=== PATIENT | male | born 1945 | race Caucasian/White ===

== ENCOUNTER 2018-06-16 18:31 | Inpatient (IN) ==
[2018-06-16] MEDS ORDERED: ASPIRIN 325 MG TABLET PO STA (19:05)
[2018-06-16 19:17] LABS: Basophils # 0.1 10*3/uL (0.0-0.2); Basophils % 0.8 % (0.0-0.8); Eosinophils # 0.3 10*3/uL (0.0-0.87); Eosinophils % 2.5 % (0.00-10.9); Hematocrit 44.3 VOL% (42.0-52.0); Hemoglobin 14.6 GM/DL (14.0-18.0); Immature Granulocytes % 0.3 %; Immature Granulocytes Absolute 0.03 #; Lymphocytes # 3.1 10*3/uL (1.4-4.0); Lymphocytes % 31.9 % (21.2-54.2); Mean Corpuscular Hemoglobin 31 PG (27-34); Mean Corpuscular Volume 92.5 FL (87-102); Mean Platelet Volume 11.5 FL (9.6-12.0); Monocytes # 1.1 10*3/uL (0.11-0.8); Monocytes % 10.7 % (1.7-12.7); Neutrophils # 5.3 10*3/uL (1.4-7.4); Neutrophils % 53.8 % (38.7-73.9); Platelet Count 172 T/CUMM (130-400); Red Blood Count 4.79 MC/CUMM (3.8-5.5); Red Cell Distribution Width 13.2 % (9.3-17.3); White Blood Count 9.8 T/CUMM (4-12)
[2018-06-16] MEDS: NITROGLYCERIN SL 0.4 MG TABLET SL PRN ×2 (19:22→19:35)
[2018-06-16 19:31] LABS: Alanine Aminotransferase 41 U/L (16-61); Albumin 3.5 G/DL (3.4-5.0); Alkaline Phosphatase 92 U/L (45-117); Aspartate Amino Transferase 38 U/L (0-37); Bilirubin,Total < 0.39 MG/DL (0.2-1.0); Blood Urea Nitrogen 11 MG/DL (7-18); Calcium 8.2 MG/DL (8.5-10.1); Glucose 138 MG/DL (74-106); Osmolality,Calculated 279.4 MOS/KG (273-304); Potassium 3.7 MMOL/L (3.5-5.1); Sodium 140 MMOL/L (136-145); Total Protein 6.4 G/DL (6.4-8.3)
[2018-06-16] MEDS ORDERED: ONDANSETRON 4 MG/2 ML VIAL IV ONE (19:37)
[2018-06-16] MEDS ORDERED: MORPHINE 4 MG/1 ML VIAL IV STA (19:37)
[2018-06-16] MEDS ORDERED: MORPHINE 4 MG/1 ML VIAL ONE (19:39)
[2018-06-16] MEDS ORDERED: ONDANSETRON 4 MG/2 ML VIAL ONE (19:39)
[2018-06-16] MEDS ORDERED: ENOXAPARIN 30 MG/0.3 ML SYRINGE SUBCUT STA (19:39)
[2018-06-16] MEDS ORDERED: MORPHINE 4 MG/1 ML VIAL IV PRN (20:21)
[2018-06-16] MEDS ORDERED: ONDANSETRON 4 MG/2 ML VIAL IV PRN (20:21)
[2018-06-16] MEDS ORDERED: ENOXAPARIN 100 MG/ML SYRINGE SUBCUT ONE (22:22)
[2018-06-17 05:24] LABS: Risk Ratio 3.09; VLDL CHOLESTEROL 15.8 MG/DL
[2018-06-17] MEDS: ENOXAPARIN 120 MG/0.8 ML SYRINGE SUBCUT SCH ×2 (08:31→21:42)
[2018-06-17] MEDS: ASPIRIN 325 MG TABLET PO SCH (08:31)
[2018-06-17] MEDS ORDERED: diphenhydrAMINE CAP 25 MG CAPSULE PO ONE (10:27)
[2018-06-17] MEDS ORDERED: POTASSIUM CHLORIDE RIDER 10 MEQ in PREMIX 1 EACH IV PRN (10:27)
[2018-06-17] MEDS ORDERED: MAGNESIUM SULF RIDER 2 GM in PREMIX 1 EACH IV PRN (10:27)
[2018-06-17] MEDS ORDERED: DIAZEPAM 5 MG TABLET PO ONE (10:27)
[2018-06-17] MEDS: SODIUM CHLORIDE 0.9% 1,000 ML IV SCH (12:33)
[2018-06-17] MEDS ORDERED: LIDOCAINE 1% 20 ML VIAL ONE (15:39)
[2018-06-17] MEDS ORDERED: MIDAZOLAM 2 MG/2 ML VIAL ONE (15:39)
[2018-06-17] MEDS ORDERED: NITROGLYCERIN DRIP 50 MG/250 ML BOTTLE IV ONE (15:39)
[2018-06-17] MEDS ORDERED: VERAPAMIL 5 MG/2 ML VIAL ONE (15:39)
[2018-06-17] MEDS ORDERED: fentaNYL 100 MCG/2 ML VIAL ONE (15:39)
[2018-06-18] MEDS: SODIUM CHLORIDE 0.9% 1,000 ML IV SCH ×3 (00:10→11:51)
[2018-06-18 04:06] LABS: Basophils # 0.1 10*3/uL (0.0-0.2); Basophils % 0.6 % (0.0-0.8); Eosinophils # 0.2 10*3/uL (0.0-0.87); Eosinophils % 2.1 % (0.00-10.9); Hematocrit 40.5 VOL% (42.0-52.0); Hemoglobin 13.2 GM/DL (14.0-18.0); Immature Granulocytes % 0.3 %; Immature Granulocytes Absolute 0.03 #; Lymphocytes # 3.1 10*3/uL (1.4-4.0); Lymphocytes % 31.9 % (21.2-54.2); Mean Corpuscular HGB Conc 32.6 GM/DL (32-36); Mean Corpuscular Hemoglobin 30 PG (27-34); Mean Corpuscular Volume 91.6 FL (87-102); Mean Platelet Volume 12.4 FL (9.6-12.0); Monocytes # 1.3 10*3/uL (0.11-0.8); Monocytes % 13.9 % (1.7-12.7); Neutrophils # 4.9 10*3/uL (1.4-7.4); Neutrophils % 51.2 % (38.7-73.9); Platelet Count 165 T/CUMM (130-400); Red Blood Count 4.42 MC/CUMM (3.8-5.5); Red Cell Distribution Width 13.7 % (9.3-17.3); White Blood Count 9.6 T/CUMM (4-12)
[2018-06-18 04:14] LABS: Calcium 8.1 MG/DL (8.5-10.1); Osmolality,Calculated 276.4 MOS/KG (273-304); Potassium 4.3 MMOL/L (3.5-5.1)
[2018-06-18] MEDS: ENOXAPARIN 120 MG/0.8 ML SYRINGE SUBCUT SCH (08:59)
[2018-06-18] MEDS: CHLORHEXIDINE 0.12% ORAL RINSE 60 ML BOTTLE SWISH/SPIT SCH ×2 (08:59→22:00)
[2018-06-18] MEDS: ASPIRIN 325 MG TABLET PO SCH (08:59)
[2018-06-18] MEDS: CHLORHEXIDINE 4% SOLN 118 ML BOTTLE TOP SCH ×3 (09:09→22:00)
[2018-06-18] MEDS: hydroCHLOROthiazide 12.5 MG CAPSULE PO SCH (11:51)
[2018-06-18] MEDS: LISINOPRIL 5 MG TABLET PO SCH (11:52)
[2018-06-18] MEDS: ATORVASTATIN 20 MG TABLET PO SCH (11:52)
[2018-06-19 04:26] LABS: Basophils # 0.1 10*3/uL (0.0-0.2); Basophils % 0.6 % (0.0-0.8); Eosinophils # 0.2 10*3/uL (0.0-0.87); Eosinophils % 1.6 % (0.00-10.9); Hematocrit 39.4 VOL% (42.0-52.0); Hemoglobin 13.1 GM/DL (14.0-18.0); Immature Granulocytes % 0.2 %; Immature Granulocytes Absolute 0.02 #; Lymphocytes # 2.8 10*3/uL (1.4-4.0); Lymphocytes % 27.7 % (21.2-54.2); Mean Corpuscular HGB Conc 33.2 GM/DL (32-36); Mean Corpuscular Hemoglobin 30 PG (27-34); Mean Corpuscular Volume 89.7 FL (87-102); Mean Platelet Volume 12.1 FL (9.6-12.0); Monocytes # 1.7 10*3/uL (0.11-0.8); Monocytes % 16.2 % (1.7-12.7); Neutrophils # 5.5 10*3/uL (1.4-7.4); Neutrophils % 53.7 % (38.7-73.9); Platelet Count 157 T/CUMM (130-400); Red Blood Count 4.39 MC/CUMM (3.8-5.5); Red Cell Distribution Width 13.2 % (9.3-17.3); White Blood Count 10.2 T/CUMM (4-12)
[2018-06-19 05:01] LABS: Eosinophils 2 % (0-10); Hypochromasia 1+; Lymphocytes 26 % (20-55); Platelet Estimate Adequate; Segmented Neutrophils 60 % (50-85); Total Cells Counted 100
[2018-06-19 05:12] LABS: Calcium 8.5 MG/DL (8.5-10.1); Osmolality,Calculated 279.4 MOS/KG (273-304); Potassium 3.5 MMOL/L (3.5-5.1)
[2018-06-19] MEDS ORDERED: VANCOMYCIN 1,000 MG VIAL ONE (05:17)
[2018-06-19] MEDS ORDERED: PAPAVERINE 60 MG/2 ML VIAL ONE (05:17)
[2018-06-19] MEDS ORDERED: TISSUE ADHESIVE 1 EACH APPLICATOR TOP ONE (05:17)
[2018-06-19] MEDS ORDERED: CEFUROXIME INJ 1,500 MG in SYRINGE 1 EACH IV ONE (07:09)
[2018-06-19] MEDS ORDERED: ALBUMIN 5% 12.5 GM/250 ML VIAL IV ONE ×3 (08:57→17:01)
[2018-06-19] MEDS ORDERED: POTASSIUM CHLORIDE RIDER 100 ML IV ONE (09:34)
[2018-06-19] MEDS ORDERED: MIDAZOLAM 2 MG/2 ML VIAL ONE (09:37)
[2018-06-19] MEDS ORDERED: ATROPINE 1 MG/10 ML SYRINGE ONE (09:46)
[2018-06-19] MEDS ORDERED: EPINEPHrine 1 MG/10 ML SYRINGE ONE (09:46)
[2018-06-19] MEDS ORDERED: CALCIUM CHLORIDE 1,000 MG/10 ML SYRINGE IV ONE (09:46)
[2018-06-19] MEDS ORDERED: FAMOTIDINE 20 MG TABLET PO ONE (10:30)
[2018-06-19] MEDS ORDERED: DIAZEPAM 5 MG TABLET PO ONE (10:30)
[2018-06-19] MEDS ORDERED: MIDAZOLAM 2 MG/2 ML VIAL IV ONE (10:33)
[2018-06-19] MEDS ORDERED: ePHEDrine 50 MG/ML AMP ONE (11:21)
[2018-06-19] MEDS ORDERED: MIDAZOLAM 10 MG/2 ML VIAL ONE (11:21)
[2018-06-19] MEDS ORDERED: CALCIUM CHLORIDE 1,000 MG/10 ML VIAL IV ONE (11:21)
[2018-06-19] MEDS ORDERED: VECURONIUM 10 MG VIAL IV ONE (11:22)
[2018-06-19] MEDS ORDERED: ETOMIDATE 40 MG/20 ML VIAL IV ONE (11:22)
[2018-06-19] MEDS ORDERED: SODIUM CHLORIDE 0.9% 250 ML IV ONE (11:22)
[2018-06-19] MEDS ORDERED: LACTATED RINGERS 1,000 ML IV ONE (11:22)
[2018-06-19] MEDS ORDERED: SODIUM CHLORIDE 0.9% 1,000 ML IV ONE (11:22)
[2018-06-19] MEDS ORDERED: PHENYLEPHRINE DRIP 20 MG/250 ML PREMIX IV ONE (11:22)
[2018-06-19] MEDS ORDERED: AMINOCAPROIC ACID 5,000 MG/20 ML VIAL IV ONE (11:22)
[2018-06-19] MEDS ORDERED: NITROGLYCERIN DRIP 50 MG/250 ML BOTTLE IV ONE (11:23)
[2018-06-19 12:23] LABS: ABG Base Excess 1.2 MMOL/L (-2.5-2.5); ABG HCO3 25.5 MMOL/L (20-26); ABG Oxygen Saturation 99.7 % (95-100); ABG PCO2 43.7 MM HG (35-48); ABG TCO2 23.1 MMOL/L (23-27); Glucose Heart Surgery 109 MG/DL (74-106); Hematocrit Heart Surgery 40.1 PERCENT (42-52); Ionized Calcium Arterial 1.11 MMOL/L (1.21-1.46); PCO2 Patient Temp Arterial 43.7 MMHG; Patient Temperature 37 CELCIUS; Sodium Heart/CVR 136 MMOL/L (135-145)
[2018-06-19 13:33] LABS: Hematocrit Heart Surgery 28.8 PERCENT (42-52); Hemoglobin Heart Surgery 9.3 G/DL (14.0-18.0); PCO2 Patient Temp Venous 40.8 MM HG; PH Patient Temp Venous 7.418; PO2 Patient Temp Venous 46.9 MM HG; Potassium Heart/CVR 4.3 MMOL/L (3.5-5.1); VBG Base Excess 1.7 MEQ/L (0-4); VBG HCO3 25.7 MEQ/L (24-28); VBG Oxygen Saturation 81.9 %; VBG PCO2 40.8 MMHG (41-51); VBG PH 7.418; VBG PO2 46.9 MMHG (17-40)
[2018-06-19 13:47] LABS: Apearance,Urine CLEAR (Clear); Bilirubin,Urine Negative (Negative); Blood, Urine Negative (Negative); Glucose,Urine (UA) Negative (Negative); Ketones,Urine Negative (Negative); Mucus,Urine Occasional /LPF (Occasional); Nitrite,Urine Negative (Negative); Protein,Urine Negative; RBC,Urine 1 /HPF (0-4); Urine Color Yellow (Yellow); Urine Specific Gravity 1.015 (1.001-1.035)
[2018-06-19 14:05] LABS: Hematocrit Heart Surgery 29.6 PERCENT (42-52); Hemoglobin Heart Surgery 9.6 G/DL (14.0-18.0); PH Patient Temp Venous 7.482; PO2 Patient Temp Venous 49.8 MM HG; Potassium Heart/CVR 4.3 MMOL/L (3.5-5.1); VBG Base Excess 2.2 MEQ/L (0-4); VBG HCO3 26.2 MEQ/L (24-28); VBG Oxygen Saturation 86.9 %; VBG PH 7.482; VBG PO2 49.8 MMHG (17-40)
[2018-06-19 14:36] LABS: Hematocrit Heart Surgery 31.9 PERCENT (42-52); Hemoglobin Heart Surgery 10.3 G/DL (14.0-18.0); PCO2 Patient Temp Venous 36.5 MM HG; PH Patient Temp Venous 7.461; PO2 Patient Temp Venous 46.6 MM HG; Potassium Heart/CVR 4.3 MMOL/L (3.5-5.1); VBG Base Excess 2.4 MEQ/L (0-4); VBG HCO3 26.3 MEQ/L (24-28); VBG PCO2 36.5 MMHG (41-51); VBG PH 7.461; VBG PO2 46.6 MMHG (17-40)
[2018-06-19] MEDS ORDERED: methylPREDNISolone SOD SUC 1,000 MG/8 ML VIAL ONE (14:56)
[2018-06-19] MEDS ORDERED: HEPARIN 10,000 UNIT/10 ML VIAL ONE (14:56)
[2018-06-19] MEDS ORDERED: PROTAMINE SULFATE 250 MG/25 ML VIAL IV ONE ×2 (14:56→15:28)
[2018-06-19] MEDS ORDERED: SODIUM BICARBONATE 50 MEQ/50 ML SYRINGE IV ONE ×3 (14:56→22:00)
[2018-06-19] MEDS ORDERED: MAGNESIUM SULFATE 10 GM/20 ML VIAL IV ONE (14:56)
[2018-06-19] MEDS ORDERED: MANNITOL 12.5 GM/50 ML VIAL IV ONE (14:56)
[2018-06-19] MEDS ORDERED: DEXTROSE 5% KCL 20 MEQ 20 MEQ/1,000 ML BAG IV ONE (14:56)
[2018-06-19] MEDS ORDERED: ALBUMIN 25% 25 GM/100 ML VIAL IV ONE (14:56)
[2018-06-19] MEDS ORDERED: FUROSEMIDE 20 MG/2 ML VIAL ONE (14:57)
[2018-06-19] MEDS ORDERED: THROMBIN TOPICAL (RECOMBINANT) 5,000 UNIT VIAL TOP ONE (15:02)
[2018-06-19 15:08] LABS: ABG Base Excess 0.3 MMOL/L (-2.5-2.5); ABG HCO3 24.6 MMOL/L (20-26); ABG Oxygen Saturation 98.5 % (95-100); ABG PCO2 38.1 MM HG (35-48); ABG PH 7.427 (7.35-7.45); ABG PO2 176.2 MM HG (80-95); ABG TCO2 25.7 MMOL/L (23-27); Glucose Heart Surgery 171 MG/DL (74-106); Hemoglobin Heart Surgery 11.4 G/DL (14.0-18.0); Ionized Calcium Arterial 1.16 MMOL/L (1.21-1.46); Potassium Heart/CVR 3.6 MMOL/L (3.5-5.1); Sodium Heart/CVR 130 MMOL/L (135-145)
[2018-06-19 15:09] LABS: Patient Temperature 37 CELCIUS
[2018-06-19] MEDS ORDERED: PHENYLEPHRINE DRIP 40 MG/250 ML PREMIX IV ONE (16:15)
[2018-06-19] MEDS ORDERED: ACETAMINOPHEN 650 MG SUPP RECTAL PRN (16:54)
[2018-06-19] MEDS ORDERED: ONDANSETRON 4 MG/2 ML VIAL IV PRN (16:54)
[2018-06-19] MEDS ORDERED: MIDAZOLAM 2 MG/2 ML VIAL IV PRN (16:54)
[2018-06-19] MEDS ORDERED: SODIUM CHLORIDE 0.9% 250 ML IV PRN (16:54)
[2018-06-19] MEDS ORDERED: MAGNESIUM SULF RIDER 4 GM in PREMIX 1 EACH IV PRN (16:54)
[2018-06-19] MEDS ORDERED: CHLORHEXIDINE 4% SOLN 118 ML BOTTLE TOP PRN (16:54)
[2018-06-19] MEDS ORDERED: INSULIN REGULAR 100 UNIT/ML IV PRN (16:54)
[2018-06-19] MEDS ORDERED: CALCIUM CHLORIDE 1,000 MG/10 ML SYRINGE IV PRN (16:54)
[2018-06-19] MEDS ORDERED: SODIUM CHLORIDE 0.9% 1,000 ML IV PRN (16:54)
[2018-06-19] MEDS ORDERED: POTASSIUM CHLORIDE RIDER 10 MEQ in PREMIX 1 EACH IV PRN (16:54)
[2018-06-19] MEDS ORDERED: DEXTROSE 50% 25 GM/50 ML VIAL IV PRN ×2 (16:54)
[2018-06-19] MEDS ORDERED: MAGNESIUM SULF RIDER 2 GM in PREMIX 1 EACH IV PRN (16:54)
[2018-06-19] MEDS ORDERED: SEVOFLURANE 1 UNIT/15 MINUTE INH ONE (16:57)
[2018-06-19] MEDS ORDERED: ALBUTEROL INHALER 8 GM INH ONE (16:57)
[2018-06-19] MEDS: ALBUMIN 5% 12.5 GM in PREMIX 1 EACH IV PRN ×2 (17:00→17:16)
[2018-06-19] MEDS ORDERED: SODIUM CHLORIDE 0.45% 1,000 ML IV SCH ×2 (17:00)
[2018-06-19 17:13] LABS: ABG Base Excess -2.6 MMOL/L (-2.5-2.5); ABG HCO3 22.2 MMOL/L (20-26); ABG Oxygen Saturation 92.8 % (95-100); ABG PCO2 40.3 MM HG (35-48); ABG PH 7.358 (7.35-7.45); ABG PO2 71.5 MM HG (80-95); ABG TCO2 20.3 MMOL/L (23-27); Glucose Heart Surgery 192 MG/DL (74-106); Hematocrit Heart Surgery 35.7 PERCENT (42-52); Hemoglobin Heart Surgery 11.6 G/DL (14.0-18.0); Potassium Heart/CVR 2.8 MMOL/L (3.5-5.1)
[2018-06-19 17:17] LABS: Basophils # 0.1 10*3/uL (0.0-0.2); Basophils % 0.3 % (0.0-0.8); Eosinophils # 0.1 10*3/uL (0.0-0.87); Eosinophils % 0.3 % (0.00-10.9); Hemoglobin 11.9 GM/DL (14.0-18.0); Immature Granulocytes % 0.8 %; Immature Granulocytes Absolute 0.16 #; Lymphocytes # 3.2 10*3/uL (1.4-4.0); Mean Corpuscular HGB Conc 33.1 GM/DL (32-36); Mean Corpuscular Hemoglobin 30 PG (27-34); Mean Corpuscular Volume 92.1 FL (87-102); Mean Platelet Volume 11.7 FL (9.6-12.0); Monocytes # 1.8 10*3/uL (0.11-0.8); Monocytes % 8.6 % (1.7-12.7); Neutrophils # 15.8 10*3/uL (1.4-7.4); Platelet Count 154 T/CUMM (130-400); Red Blood Count 3.91 MC/CUMM (3.8-5.5); Red Cell Distribution Width 13.5 % (9.3-17.3); White Blood Count 21.1 T/CUMM (4-12)
[2018-06-19 17:28] LABS: INR 1.1; Partial Thromboplastin Time 25.6 SECS (0-40)
[2018-06-19] MEDS: POTASSIUM CHLORIDE RIDER 20 MEQ in PREMIX 1 EACH IV PRN ×4 (17:30→20:30)
[2018-06-19 17:35] LABS: Blood Urea Nitrogen 10 MG/DL (7-18); Glucose 192 MG/DL (74-106); Osmolality,Calculated 282.4 MOS/KG (273-304); Potassium 2.9 MMOL/L (3.5-5.1); Sodium 140 MMOL/L (136-145)
[2018-06-19 17:40] LABS: Lactic Acid 4.7 MMOL/L (0.4-2.0)
[2018-06-19] MEDS: INSULIN REGULAR DRIP 100 ML IV SCH (17:47)
[2018-06-19 17:49] LABS: Anisocytosis 1+; Band Neutrophils 2 % (0-10); Lymphocytes 18 % (20-55); Platelet Estimate Adequate; Segmented Neutrophils 74 % (50-85); Smudge Cells Few; Total Cells Counted 100
[2018-06-19 17:50] LABS: Macrocytosis Slight
[2018-06-19 19:28] LABS: ABG Base Excess -6.2 MMOL/L (-2.5-2.5); ABG HCO3 19.3 MMOL/L (20-26); ABG Oxygen Saturation 95.8 % (95-100); ABG PO2 90.3 MM HG (80-95); ABG TCO2 17.9 MMOL/L (23-27); Glucose Heart Surgery 202 MG/DL (74-106); Hematocrit Heart Surgery 32.5 PERCENT (42-52); Hemoglobin Heart Surgery 10.5 G/DL (14.0-18.0); Potassium Heart/CVR 3.2 MMOL/L (3.5-5.1)
[2018-06-19] MEDS: MORPHINE 4 MG/1 ML VIAL IV PRN (19:37)
[2018-06-19] MEDS: PHENYLEPHRINE DRIP 40 MG/250 ML PREMIX IV PRN (20:00)
[2018-06-19] MEDS: CEFUROXIME INJ 1,500 MG in SYRINGE 1 EACH IV SCH (20:46)
[2018-06-19 21:41] LABS: VBG Base Excess -5.5 MEQ/L (0-4); VBG HCO3 20.3 MEQ/L (24-28); VBG Oxygen Saturation 69.5 %; VBG PCO2 40.8 MMHG (41-51); VBG PH 7.314; VBG PO2 45.7 MMHG (17-40)
[2018-06-19] MEDS ORDERED: SODIUM BICARB INJ 50 MEQ in SODIUM CHLORIDE 0.45% 1,000 ML IV SCH (22:00)
[2018-06-19] MEDS: SODIUM BICARB INJ 50 MEQ in SODIUM CHLORIDE 0.45% 1,000 ML IV SCH (22:21)
[2018-06-19 23:12] LABS: ABG Base Excess -4.1 MMOL/L (-2.5-2.5); ABG HCO3 20.1 MMOL/L (20-26); ABG Oxygen Saturation 97.2 % (95-100); ABG PCO2 33.7 MM HG (35-48); ABG PH 7.393 (7.35-7.45); ABG PO2 107.1 MM HG (80-95); ABG TCO2 21.1 MMOL/L (23-27); Glucose Heart Surgery 157 MG/DL (74-106)
[2018-06-19] MEDS: CHLORHEXIDINE 0.12% ORAL RINSE 60 ML BOTTLE SWISH/SPIT SCH (23:13)
[2018-06-19 23:36] LABS: Lactic Acid 6.2 MMOL/L (0.4-2.0)
[2018-06-20] MEDS: MORPHINE 4 MG/1 ML VIAL IV PRN ×2 (00:37→03:39)
[2018-06-20] MEDS: INSULIN REGULAR DRIP 100 ML IV SCH ×2 (03:13→16:47)
[2018-06-20 04:56] LABS: Basophils % 0.1 % (0.0-0.8); Hematocrit 30.4 VOL% (42.0-52.0); Immature Granulocytes % 0.7 %; Immature Granulocytes Absolute 0.13 #; Lymphocytes # 0.9 10*3/uL (1.4-4.0); Lymphocytes % 4.7 % (21.2-54.2); Mean Corpuscular HGB Conc 32.9 GM/DL (32-36); Mean Corpuscular Hemoglobin 30 PG (27-34); Mean Corpuscular Volume 92.1 FL (87-102); Mean Platelet Volume 12.6 FL (9.6-12.0); Monocytes # 1.3 10*3/uL (0.11-0.8); Monocytes % 7.1 % (1.7-12.7); Neutrophils # 16.6 10*3/uL (1.4-7.4); Neutrophils % 87.4 % (38.7-73.9); Platelet Count 159 T/CUMM (130-400); Red Cell Distribution Width 13.5 % (9.3-17.3)
[2018-06-20 05:09] LABS: Calcium 7.7 MG/DL (8.5-10.1); Osmolality,Calculated 283.1 MOS/KG (273-304)
[2018-06-20 05:22] LABS: Band Neutrophils 2 % (0-10); Hypochromasia 1+; Lymphocytes 5 % (20-55); Microcytosis Slight; Platelet Estimate Adequate; Segmented Neutrophils 88 % (50-85); Total Cells Counted 100
[2018-06-20 06:16] LABS: ABG Base Excess 0.8 MMOL/L (-2.5-2.5); ABG HCO3 25.1 MMOL/L (20-26); ABG Oxygen Saturation 97.2 % (95-100); ABG PCO2 38.9 MM HG (35-48); ABG PH 7.418 (7.35-7.45); ABG PO2 92.1 MM HG (80-95); ABG TCO2 22.7 MMOL/L (23-27)
[2018-06-20 06:43] LABS: ABG Base Excess 0.5 MMOL/L (-2.5-2.5); ABG HCO3 24.8 MMOL/L (20-26); ABG Oxygen Saturation 94.5 % (95-100); ABG PCO2 40.8 MM HG (35-48); ABG PH 7.401 (7.35-7.45); ABG PO2 73.2 MM HG (80-95); ABG TCO2 22.8 MMOL/L (23-27)
[2018-06-20] MEDS: MORPHINE 10 MG/1 ML VIAL IV PRN ×4 (08:15→23:29)
[2018-06-20] MEDS: CHLORHEXIDINE 0.12% ORAL RINSE 60 ML BOTTLE SWISH/SPIT SCH ×3 (10:30→20:26)
[2018-06-20] MEDS: PANTOPRAZOLE 40 MG VIAL IV SCH (10:30)
[2018-06-20] MEDS: ASPIRIN 325 MG TABLET PO SCH (10:41)
[2018-06-20] MEDS: SODIUM CHLORIDE 0.9% 1,000 ML IV SCH ×3 (10:41→10:44)
[2018-06-20] MEDS: hydroCHLOROthiazide 12.5 MG CAPSULE PO SCH (10:41)
[2018-06-20] MEDS: LISINOPRIL 5 MG TABLET PO SCH (10:42)
[2018-06-20] MEDS: ATORVASTATIN 20 MG TABLET PO SCH (10:42)
[2018-06-20] MEDS ORDERED: FUROSEMIDE 40 MG/4 ML VIAL ONE (15:10)
[2018-06-20] MEDS ORDERED: ALBUMIN 5% 25 GM in PREMIX 1 EACH IV ONE (15:30)
[2018-06-20] MEDS ORDERED: FUROSEMIDE 40 MG/4 ML VIAL IV ONE (15:33)
[2018-06-20] MEDS ORDERED: ALBUMIN 25% 25 GM in PREMIX 1 EACH IV ONE (15:33)
[2018-06-20] MEDS: ALBUTEROL/IPRATROPIUM 3 ML NEB RESP TX SCH ×3 (15:55→23:10)
[2018-06-20] MEDS: CEFUROXIME INJ 1,500 MG in SYRINGE 1 EACH IV SCH ×2 (16:22→19:50)
[2018-06-20] MEDS: SODIUM BICARB INJ 50 MEQ in SODIUM CHLORIDE 0.45% 1,000 ML IV SCH (16:24)
[2018-06-20] MEDS: ATORVASTATIN 40 MG TABLET PO SCH ×2 (16:46→20:25)
[2018-06-20] MEDS: ASPIRIN EC 325 MG TABLET PO SCH (16:46)
[2018-06-20] MEDS: FUROSEMIDE 40 MG TABLET PO SCH (16:46)
[2018-06-20] MEDS ORDERED: LACTATED RINGERS 500 ML IV ONE ×2 (20:18→21:31)
[2018-06-20] MEDS: PHENYLEPHRINE DRIP 40 MG/250 ML PREMIX IV PRN (22:38)
[2018-06-21] MEDS: ALBUTEROL/IPRATROPIUM 3 ML NEB RESP TX SCH ×6 (03:08→23:22)
[2018-06-21 05:27] LABS: Calcium 7.2 MG/DL (8.5-10.1); Osmolality,Calculated 285.3 MOS/KG (273-304); Potassium 4.9 MMOL/L (3.5-5.1)
[2018-06-21 06:18] LABS: Basophils % 0.1 % (0.0-0.8); Hematocrit 29.5 VOL% (42.0-52.0); Hemoglobin 9.3 GM/DL (14.0-18.0); Immature Granulocytes % 0.8 %; Immature Granulocytes Absolute 0.19 #; Lymphocytes # 1.6 10*3/uL (1.4-4.0); Lymphocytes % 6.6 % (21.2-54.2); Mean Corpuscular HGB Conc 31.5 GM/DL (32-36); Mean Corpuscular Hemoglobin 31 PG (27-34); Mean Corpuscular Volume 96.7 FL (87-102); Mean Platelet Volume 12.4 FL (9.6-12.0); Monocytes % 12.6 % (1.7-12.7); Neutrophils # 19.1 10*3/uL (1.4-7.4); Neutrophils % 79.9 % (38.7-73.9); Platelet Count 160 T/CUMM (130-400); Red Blood Count 3.05 MC/CUMM (3.8-5.5); Red Cell Distribution Width 14.4 % (9.3-17.3)
[2018-06-21 06:47] LABS: Band Neutrophils 1 % (0-10); Hypochromasia 1+; Lymphocytes 5 % (20-55); Microcytosis Slight; Platelet Estimate Normal; Segmented Neutrophils 80 % (50-85); Total Cells Counted 100
[2018-06-21] MEDS: MORPHINE 4 MG/1 ML VIAL IV PRN ×2 (07:31→19:33)
[2018-06-21] MEDS: ASPIRIN EC 325 MG TABLET PO SCH (09:05)
[2018-06-21] MEDS: FUROSEMIDE 40 MG TABLET PO SCH (09:05)
[2018-06-21] MEDS: PANTOPRAZOLE 40 MG VIAL IV SCH (09:06)
[2018-06-21] MEDS: CHLORHEXIDINE 0.12% ORAL RINSE 60 ML BOTTLE SWISH/SPIT SCH ×2 (09:06→21:05)
[2018-06-21 09:07] LABS: ABG Oxygen Saturation 90.1 % (95-100); ABG PCO2 43.7 MM HG (35-48); ABG PH 7.408 (7.35-7.45); ABG PO2 65.6 MM HG (80-95); ABG TCO2 28.3 MMOL/L (23-27); Allen Test Positive
[2018-06-21] MEDS ORDERED: AMIODARONE 150 MG/3 ML VIAL ONE ×2 (09:18→20:04)
[2018-06-21] MEDS ORDERED: AMIODARONE INJ 450 MG in DEXTROSE 5% 241 ML IV SCH (09:30)
[2018-06-21] MEDS ORDERED: AMIODARONE INJ 150 MG in DEXTROSE 5% 100 ML IV ONE ×3 (09:30→21:00)
[2018-06-21] MEDS ORDERED: FUROSEMIDE 40 MG/4 ML VIAL IV ONE (10:33)
[2018-06-21] MEDS: AMIODARONE INJ 450 MG in DEXTROSE 5% 241 ML IV SCH (18:36)
[2018-06-21] MEDS: ATORVASTATIN 40 MG TABLET PO SCH (21:05)
[2018-06-22] MEDS ORDERED: SODIUM CHLORIDE 0.45% 1,000 ML IV SCH (00:30)
[2018-06-22] MEDS ORDERED: AMIODARONE INJ 450 MG in DEXTROSE 5% 241 ML IV SCH (02:13)
[2018-06-22] MEDS: ALBUTEROL/IPRATROPIUM 3 ML NEB RESP TX SCH ×5 (03:04→19:43)
[2018-06-22 04:49] LABS: Calcium 7.5 MG/DL (8.5-10.1); Osmolality,Calculated 286.3 MOS/KG (273-304); Potassium 4.4 MMOL/L (3.5-5.1)
[2018-06-22] MEDS: METOPROLOL TARTRATE 25 MG TABLET PO SCH ×2 (09:03→21:20)
[2018-06-22] MEDS: PANTOPRAZOLE 40 MG VIAL IV SCH (09:03)
[2018-06-22] MEDS: FUROSEMIDE 40 MG TABLET PO SCH (09:03)
[2018-06-22] MEDS: ASPIRIN EC 325 MG TABLET PO SCH (09:03)
[2018-06-22] MEDS: CHLORHEXIDINE 0.12% ORAL RINSE 60 ML BOTTLE SWISH/SPIT SCH ×2 (09:19→21:09)
[2018-06-22] MEDS: AMIODARONE 200 MG TABLET PO SCH ×2 (11:16→21:09)
[2018-06-22] MEDS: AMIODARONE INJ 450 MG in DEXTROSE 5% 241 ML IV SCH ×2 (11:19→21:33)
[2018-06-22] MEDS: ATORVASTATIN 40 MG TABLET PO SCH (21:09)
[2018-06-22] MEDS: MORPHINE 4 MG/1 ML VIAL IV PRN (21:10)
[2018-06-22] MEDS: CARBOXYMETHYLCELLULOSE 1% OPH SOLN BOTH EYES SCH (21:33)
[2018-06-23] MEDS: ALBUTEROL/IPRATROPIUM 3 ML NEB RESP TX SCH ×6 (00:45→20:26)
[2018-06-23 04:41] LABS: Basophils % 0.3 % (0.0-0.8); Eosinophils # 0.1 10*3/uL (0.0-0.87); Hematocrit 29.8 VOL% (42.0-52.0); Hemoglobin 9.7 GM/DL (14.0-18.0); Immature Granulocytes % 0.7 %; Lymphocytes # 2.8 10*3/uL (1.4-4.0); Mean Corpuscular HGB Conc 32.6 GM/DL (32-36); Mean Corpuscular Hemoglobin 30 PG (27-34); Mean Platelet Volume 12.3 FL (9.6-12.0); Monocytes # 1.7 10*3/uL (0.11-0.8); Monocytes % 11.9 % (1.7-12.7); Neutrophils # 9.8 10*3/uL (1.4-7.4); Neutrophils % 67.1 % (38.7-73.9); Platelet Count 163 T/CUMM (130-400); Red Blood Count 3.24 MC/CUMM (3.8-5.5); Red Cell Distribution Width 13.6 % (9.3-17.3); White Blood Count 14.5 T/CUMM (4-12)
[2018-06-23 04:54] LABS: Calcium 7.7 MG/DL (8.5-10.1); Osmolality,Calculated 282.4 MOS/KG (273-304); Potassium 4.1 MMOL/L (3.5-5.1)
[2018-06-23] MEDS: AMIODARONE 200 MG TABLET PO SCH ×2 (08:44→21:28)
[2018-06-23] MEDS: CHOLECALCIFEROL 5,000 UNIT TABLET PO SCH (08:44)
[2018-06-23] MEDS: PANTOPRAZOLE 40 MG VIAL IV SCH (08:44)
[2018-06-23] MEDS: CYANOCOBALAMIN 500 MCG TABLET PO SCH (08:45)
[2018-06-23] MEDS: METOPROLOL TARTRATE 25 MG TABLET PO SCH ×2 (08:45→21:28)
[2018-06-23] MEDS: MULTIVITAMIN (BEROCCA) TABLET PO SCH (08:45)
[2018-06-23] MEDS: FUROSEMIDE 40 MG TABLET PO SCH (08:45)
[2018-06-23] MEDS: ASPIRIN EC 325 MG TABLET PO SCH (08:45)
[2018-06-23] MEDS: ESCITALOPRAM 10 MG TABLET PO SCH (08:45)
[2018-06-23] MEDS: CHLORHEXIDINE 0.12% ORAL RINSE 60 ML BOTTLE SWISH/SPIT SCH ×2 (08:46→21:29)
[2018-06-23] MEDS: CARBOXYMETHYLCELLULOSE 1% OPH SOLN BOTH EYES SCH ×3 (11:49→21:32)
[2018-06-23] MEDS: LEVOFLOXACIN 750 MG TABLET PO SCH (12:54)
[2018-06-23] MEDS: ATORVASTATIN 40 MG TABLET PO SCH (21:28)
[2018-06-24] MEDS: ALBUTEROL/IPRATROPIUM 3 ML NEB RESP TX SCH ×6 (00:08→19:39)
[2018-06-24 05:56] LABS: Basophils % 0.3 % (0.0-0.8); Eosinophils # 0.2 10*3/uL (0.0-0.87); Eosinophils % 1.2 % (0.00-10.9); Hematocrit 29.7 VOL% (42.0-52.0); Hemoglobin 9.6 GM/DL (14.0-18.0); Immature Granulocytes % 0.7 %; Immature Granulocytes Absolute 0.09 #; Lymphocytes # 2.2 10*3/uL (1.4-4.0); Lymphocytes % 15.9 % (21.2-54.2); Mean Corpuscular HGB Conc 32.3 GM/DL (32-36); Mean Corpuscular Hemoglobin 30 PG (27-34); Mean Corpuscular Volume 93.1 FL (87-102); Mean Platelet Volume 12.4 FL (9.6-12.0); Monocytes # 2.1 10*3/uL (0.11-0.8); Monocytes % 15.4 % (1.7-12.7); Neutrophils # 9.1 10*3/uL (1.4-7.4); Neutrophils % 66.5 % (38.7-73.9); Platelet Count 156 T/CUMM (130-400); Red Blood Count 3.19 MC/CUMM (3.8-5.5); Red Cell Distribution Width 13.3 % (9.3-17.3); White Blood Count 13.7 T/CUMM (4-12)
[2018-06-24 06:15] LABS: Calcium 7.6 MG/DL (8.5-10.1); Osmolality,Calculated 285.1 MOS/KG (273-304)
[2018-06-24] MEDS: CHLORHEXIDINE 0.12% ORAL RINSE 60 ML BOTTLE SWISH/SPIT SCH ×2 (08:40→20:52)
[2018-06-24] MEDS: PANTOPRAZOLE 40 MG VIAL IV SCH (08:41)
[2018-06-24] MEDS: AMIODARONE 200 MG TABLET PO SCH ×2 (08:41→20:52)
[2018-06-24] MEDS: CHOLECALCIFEROL 5,000 UNIT TABLET PO SCH (08:42)
[2018-06-24] MEDS: ASPIRIN EC 325 MG TABLET PO SCH (08:42)
[2018-06-24] MEDS: metOLazone 5 MG TABLET PO SCH (08:42)
[2018-06-24] MEDS: MULTIVITAMIN (BEROCCA) TABLET PO SCH (08:42)
[2018-06-24] MEDS: LEVOFLOXACIN 750 MG TABLET PO SCH (08:42)
[2018-06-24] MEDS: METOPROLOL TARTRATE 25 MG TABLET PO SCH ×2 (08:42→20:52)
[2018-06-24] MEDS: CYANOCOBALAMIN 500 MCG TABLET PO SCH (08:42)
[2018-06-24] MEDS: FUROSEMIDE 40 MG TABLET PO SCH (08:42)
[2018-06-24] MEDS: ESCITALOPRAM 10 MG TABLET PO SCH (08:42)
[2018-06-24] MEDS: CARBOXYMETHYLCELLULOSE 1% OPH SOLN BOTH EYES SCH ×2 (08:42→20:54)
[2018-06-24] MEDS ORDERED: DOCUSATE SODIUM 100 MG CAPSULE PO ONE (16:42)
[2018-06-24] MEDS ORDERED: BISACODYL 5 MG TABLET PO ONE (16:43)
[2018-06-24] MEDS: ATORVASTATIN 40 MG TABLET PO SCH (20:52)
[2018-06-25] MEDS: ALBUTEROL/IPRATROPIUM 3 ML NEB RESP TX SCH ×5 (01:07→14:05)
[2018-06-25 05:48] LABS: Calcium 7.3 MG/DL (8.5-10.1); Osmolality,Calculated 276.7 MOS/KG (273-304); Potassium 3.5 MMOL/L (3.5-5.1)
[2018-06-25] MEDS: MULTIVITAMIN (BEROCCA) TABLET PO SCH (08:50)
[2018-06-25] MEDS: CHOLECALCIFEROL 5,000 UNIT TABLET PO SCH (08:50)
[2018-06-25] MEDS: PANTOPRAZOLE 40 MG VIAL IV SCH (08:50)
[2018-06-25] MEDS: ESCITALOPRAM 10 MG TABLET PO SCH (08:51)
[2018-06-25] MEDS: CYANOCOBALAMIN 500 MCG TABLET PO SCH (08:51)
[2018-06-25] MEDS: AMIODARONE 200 MG TABLET PO SCH (08:51)
[2018-06-25] MEDS: METOPROLOL TARTRATE 25 MG TABLET PO SCH (08:51)
[2018-06-25] MEDS: ASPIRIN EC 325 MG TABLET PO SCH (08:51)
[2018-06-25] MEDS: CHLORHEXIDINE 0.12% ORAL RINSE 60 ML BOTTLE SWISH/SPIT SCH (08:51)
[2018-06-25] MEDS: metOLazone 5 MG TABLET PO SCH (08:51)
[2018-06-25] MEDS: LEVOFLOXACIN 750 MG TABLET PO SCH (08:51)
[2018-06-25] MEDS: CARBOXYMETHYLCELLULOSE 1% OPH SOLN BOTH EYES SCH (08:51)
[2018-06-25] MEDS: FUROSEMIDE 40 MG TABLET PO SCH (08:51)
[2018-06-25 12:10] VITALS: BP 90/56
[2018-06-25] MEDS ORDERED: FUROSEMIDE 40 MG/4 ML VIAL IV ONE (13:30)
[2018-06-26] MEDS ORDERED: AMIODARONE 200 MG TABLET PO SCH (09:00)
== END 2018-06-25 15:47 | disposition swing bed (61) | DRG 234 ==
LOC: N.ED 18:31 → SUATTDRO 20:37 → N.EDINP 20:37 → N.TELEN 20:58 → N.CVR 06-19 11:02 → N.ICU 06-20 07:38 → N.TELES 06-22 14:51
PROVIDERS: ADMIT Internal Medicine; ATTEND Internal Medicine

== ENCOUNTER 2018-06-30 07:55 | Observation (INO) ==
[2018-06-30 08:28] LABS: Basophils # 0.1 10*3/uL (0.0-0.2); Basophils % 0.3 % (0.0-0.8); Eosinophils # 0.1 10*3/uL (0.0-0.87); Eosinophils % 0.8 % (0.00-10.9); Hematocrit 30.6 VOL% (42.0-52.0); Hemoglobin 10.1 GM/DL (14.0-18.0); Immature Granulocytes % 0.5 %; Immature Granulocytes Absolute 0.08 #; Lymphocytes # 2.9 10*3/uL (1.4-4.0); Lymphocytes % 18.9 % (21.2-54.2); Mean Corpuscular Hemoglobin 30 PG (27-34); Mean Corpuscular Volume 90.5 FL (87-102); Mean Platelet Volume 10.1 FL (9.6-12.0); Monocytes # 1.7 10*3/uL (0.11-0.8); Monocytes % 11.3 % (1.7-12.7); Neutrophils # 10.5 10*3/uL (1.4-7.4); Neutrophils % 68.2 % (38.7-73.9); Platelet Count 311 T/CUMM (130-400); Red Blood Count 3.38 MC/CUMM (3.8-5.5); Red Cell Distribution Width 13.8 % (9.3-17.3); White Blood Count 15.4 T/CUMM (4-12)
[2018-06-30 08:40] LABS: Albumin 2.5 G/DL (3.4-5.0); Bilirubin,Total 0.5 MG/DL (0.2-1.0); Calcium 8.3 MG/DL (8.5-10.1); Osmolality,Calculated 275.1 MOS/KG (273-304)
[2018-06-30 09:22] LABS: Apearance,Urine CLEAR (Clear); Bilirubin,Urine Negative (Negative); Blood, Urine Negative (Negative); Glucose,Urine (UA) Negative (Negative); Ketones,Urine Negative (Negative); Mucus,Urine Occasional /LPF (Occasional); Nitrite,Urine Negative (Negative); Protein,Urine Negative; RBC,Urine 14 /HPF (0-4); Squamous Epithelial Cell,Urine Occasional /HPF (0-10); Urine Color Yellow (Yellow); Urine Specific Gravity 1.018 (1.001-1.035); WBC,Urine 4 /HPF (0-6)
[2018-06-30 09:58] LABS: INR 1.1; PT Patient Result 11.6 SECS
[2018-06-30] MEDS ORDERED: ACETAMINOPHEN 325 MG TABLET PO PRN (11:16)
[2018-06-30] MEDS ORDERED: MORPHINE 4 MG/1 ML VIAL IV PRN (11:26)
[2018-06-30] MEDS ORDERED: NITROGLYCERIN SL 0.4 MG TABLET SL PRN (11:27)
[2018-06-30] MEDS: SODIUM CHLORIDE 0.9% 1,000 ML IV SCH (17:09)
[2018-06-30] MEDS: NYSTATIN 500,000 UNIT/5 ML UDCUP SWISH/SWAL SCH (21:21)
[2018-06-30] MEDS: ATORVASTATIN 40 MG TABLET PO SCH (21:21)
[2018-06-30] MEDS: METOPROLOL TARTRATE 25 MG TABLET PO SCH (21:22)
[2018-06-30] MEDS: AMIODARONE 200 MG TABLET PO SCH (21:22)
[2018-06-30] MEDS: CARBOXYMETHYLCELLULOSE 1% OPH SOLN BOTH EYES SCH (21:22)
[2018-07-01] MEDS: SODIUM CHLORIDE 0.9% 1,000 ML IV SCH ×2 (07:10)
[2018-07-01] MEDS: PANTOPRAZOLE 40 MG TABLET PO SCH (10:49)
[2018-07-01] MEDS: NYSTATIN 500,000 UNIT/5 ML UDCUP SWISH/SWAL SCH ×4 (10:49→21:27)
[2018-07-01] MEDS: CARBOXYMETHYLCELLULOSE 1% OPH SOLN BOTH EYES SCH ×2 (10:49→21:27)
[2018-07-01] MEDS: metOLazone 5 MG TABLET PO SCH (10:50)
[2018-07-01] MEDS: FUROSEMIDE 40 MG TABLET PO SCH (10:50)
[2018-07-01] MEDS: ESCITALOPRAM 10 MG TABLET PO SCH (10:50)
[2018-07-01] MEDS: POTASSIUM CHLORIDE 20 MEQ TABLET PO SCH (10:50)
[2018-07-01] MEDS: CHOLECALCIFEROL 5,000 UNIT TABLET PO SCH (10:50)
[2018-07-01] MEDS: ASPIRIN EC 325 MG TABLET PO SCH (10:50)
[2018-07-01] MEDS: AMIODARONE 200 MG TABLET PO SCH ×2 (10:51→21:26)
[2018-07-01] MEDS: METOPROLOL TARTRATE 25 MG TABLET PO SCH ×2 (10:52→21:26)
[2018-07-01 11:05] LABS: Glucose,Pleural Fluid 101 MG/DL; LDH,Body Fluid 353 U/L; Total Protein,Body Fluid 3.7 G/DL
[2018-07-01 11:10] LABS: Lymphocytes,Pleural Fluid 67 %; Monocytes,Pleural Fluid 30 %; Neutrophils,Pleural Fluid 3 %
[2018-07-01 11:11] LABS: RBC,Pleural Fluid 46605 T/CUMM
[2018-07-01] MEDS: LEVOFLOXACIN INJ 500 MG in PREMIX 1 EACH IV SCH (14:19)
[2018-07-01] MEDS ORDERED: MAGNESIUM HYDROXIDE SUSP 30 ML UDCUP PO PRN (18:23)
[2018-07-01] MEDS: ATORVASTATIN 40 MG TABLET PO SCH (21:26)
[2018-07-01] MEDS: DOCUSATE SODIUM 100 MG CAPSULE PO SCH (21:26)
[2018-07-02 03:47] LABS: Basophils # 0.1 10*3/uL (0.0-0.2); Basophils % 0.5 % (0.0-0.8); Eosinophils # 0.2 10*3/uL (0.0-0.87); Eosinophils % 1.2 % (0.00-10.9); Hematocrit 31.5 VOL% (42.0-52.0); Hemoglobin 10.4 GM/DL (14.0-18.0); Immature Granulocytes % 0.5 %; Immature Granulocytes Absolute 0.08 #; Lymphocytes # 2.6 10*3/uL (1.4-4.0); Mean Corpuscular Hemoglobin 29 PG (27-34); Mean Corpuscular Volume 87.5 FL (87-102); Monocytes # 1.8 10*3/uL (0.11-0.8); Monocytes % 12.2 % (1.7-12.7); Neutrophils # 9.9 10*3/uL (1.4-7.4); Neutrophils % 67.6 % (38.7-73.9); Platelet Count 305 T/CUMM (130-400); Red Cell Distribution Width 13.8 % (9.3-17.3); White Blood Count 14.6 T/CUMM (4-12)
[2018-07-02 04:17] LABS: Calcium 8.7 MG/DL (8.5-10.1); Osmolality,Calculated 269.4 MOS/KG (273-304); Potassium 3.9 MMOL/L (3.5-5.1)
[2018-07-02] MEDS: DOCUSATE SODIUM 100 MG CAPSULE PO SCH ×2 (10:21→21:29)
[2018-07-02] MEDS: POTASSIUM CHLORIDE 20 MEQ TABLET PO SCH (10:21)
[2018-07-02] MEDS: FUROSEMIDE 40 MG TABLET PO SCH (10:23)
[2018-07-02] MEDS: NYSTATIN 500,000 UNIT/5 ML UDCUP SWISH/SWAL SCH ×4 (10:23→21:30)
[2018-07-02] MEDS: ESCITALOPRAM 10 MG TABLET PO SCH (10:24)
[2018-07-02] MEDS: CHOLECALCIFEROL 5,000 UNIT TABLET PO SCH (10:24)
[2018-07-02] MEDS: PANTOPRAZOLE 40 MG TABLET PO SCH (10:24)
[2018-07-02] MEDS: metOLazone 5 MG TABLET PO SCH (10:24)
[2018-07-02] MEDS: ASPIRIN EC 325 MG TABLET PO SCH (10:24)
[2018-07-02] MEDS: CARBOXYMETHYLCELLULOSE 1% OPH SOLN BOTH EYES SCH ×2 (10:25→21:31)
[2018-07-02] MEDS: AMIODARONE 200 MG TABLET PO SCH ×2 (10:30→21:29)
[2018-07-02] MEDS: METOPROLOL TARTRATE 25 MG TABLET PO SCH ×2 (10:30→21:29)
[2018-07-02] MEDS: LEVOFLOXACIN INJ 500 MG in PREMIX 1 EACH IV SCH (12:54)
[2018-07-02] MEDS: ATORVASTATIN 40 MG TABLET PO SCH (21:29)
[2018-07-03] MEDS: CARBOXYMETHYLCELLULOSE 1% OPH SOLN BOTH EYES SCH (08:45)
[2018-07-03] MEDS: DOCUSATE SODIUM 100 MG CAPSULE PO SCH (08:46)
[2018-07-03] MEDS: PANTOPRAZOLE 40 MG TABLET PO SCH (08:46)
[2018-07-03] MEDS: ASPIRIN EC 325 MG TABLET PO SCH (08:46)
[2018-07-03] MEDS: FUROSEMIDE 40 MG TABLET PO SCH (08:46)
[2018-07-03] MEDS: CHOLECALCIFEROL 5,000 UNIT TABLET PO SCH (08:46)
[2018-07-03] MEDS: NYSTATIN 500,000 UNIT/5 ML UDCUP SWISH/SWAL SCH (08:46)
[2018-07-03] MEDS: POTASSIUM CHLORIDE 20 MEQ TABLET PO SCH (08:46)
[2018-07-03] MEDS: ESCITALOPRAM 10 MG TABLET PO SCH (08:46)
[2018-07-03] MEDS: AMIODARONE 200 MG TABLET PO SCH (08:46)
[2018-07-03] MEDS: METOPROLOL TARTRATE 25 MG TABLET PO SCH (08:47)
[2018-07-03] MEDS: metOLazone 5 MG TABLET PO SCH (08:47)
[2018-07-03 12:00] VITALS: BP 115/55
[2018-07-03] MEDS: LEVOFLOXACIN INJ 500 MG in PREMIX 1 EACH IV SCH (12:18)
== END 2018-07-03 13:10 ==
LOC: EDUNIT# → EDBD → N.ED 07:55 → INTOOBSV 11:16 → N.EDINP 11:16 → N.TELEN 11:56
PROVIDERS: ADMIT Internal Medicine; ATTEND Internal Medicine